=== PATIENT | female | born 1975 | race Caucasian/White ===

== ENCOUNTER → 2019-05-29 | Outpatient (CLI) | payer OTHER ==
[~2019-05-29] MED LIST: ACETAMINOPHEN-1 EAC1 PO; ALDACTONE25 MG; CEFDINIR300 MG; CHERATUSSIN DA480 ML; ENBREL 25 MG KI25 M1; HUMERA SQ; HUMIRA40 MG/0.8; HYDROXYCHLOROQ200 M1; KEFLEX500 MG PO; LIPITOR 10 MG10 M1 PO; METHOTREXATE 22.5 MG; MUCINEX600 MG; NAPROSYN500 MG; PREDNISONE 10 M10 MG
--- NOTE | 2019-05-30 08:44 | EXE ---
[place] [address] STRESS ECHOCARDIOGRAM Name: DAQUANTALIA Room: [facility]#: [id number] Admission: 05/29/19 Attend Phys: Physician not on s Discharge: Date of : 71 Date of Service: 05/30/19 0844 Report #: [id number] THIS REPORT FOR: //name// APPROVED REPORT Study performed: 05/29/2019 15:29:03 Exam: Dobutamine Stress Echo Indication: Dyspnea Patient Location: Out-Patient Stress Nurse: Sana Linton RN Supervising Physician: Helio Torres MD Ht: 5 ft 3 in HR: 88 bpm BP: 126/76 mmHg Medical History Cardiac Risk Factors: Hyperlipidemia, HTN, DM Procedure The patient underwent a Pharmacological Stress Test using Dobutamine. Blood pressure, heart rate, and EKG were monitored. An Echocardiogram was performed by distribution technician in four stages in quad fashion. At peak stress, four selected images were obtained and placed side by side with resting images for comparison. Echo Enhancing Agent Indication: Endocardial border delineation Agent(s) / Amount(s) Used: Optison 10 cc Stress Test Details Stress Test: Pharmacological Stress Test using Dobutamine. HR Resting HR: 88 bpm Max Heart Rate (APMHR): 174 bpm Max HR Achieved: 148 bpm Target HR (85% APMHR): 147 bpm % of APMHR: 85 Recovery HR: 103 bpm BP Resting BP: 126/76 mmHg Max BP: 150/71 mmHg Recovery BP: 149/81 mmHg ECG Resting ECG: [place] [address] STRESS ECHOCARDIOGRAM Name: TALIA BUTT Room: [facility]#: [id number] Admission: 05/29/19 Attend Phys: Physician not on s Discharge: Date of : 71 Date of Service: 05/30/19 0844 Report #: [id number] Stress ECG: Sinus Tachycardia ST Change: None Arrhythmia: None Recovery ECG: Sinus Rhythm Recovery ST Change: None Recovery Arrhythmia: None Clinical Angina Score: None The patient tolerated dobutamine infusion without significant cardiac symptoms. Stress ECG Conclusion The baseline 12-lead EKG shows sinus rhythm without significant ST or T wave abnormality. EKGs obtained during and post dobutamine infusion show sinus rhythm and sinus tachycardia with no significant ST or T wave changes when compared to baseline. There were no stress-induced arrhythmias. Pre-Stress Echo The resting Echocardiogram showed normal left ventricular contractility with an estimated Ejection Fraction of about 55-60%. Normal wall motion in all segments on baseline images. Post-Stress Echo The stress Echocardiogram showed normal left ventricular contractility with an estimated Ejection Fraction of about >70%. Normal augmentation of wall motion in all segments on post stress images. Clinical No clinical or ECG evidence for ischemia. Conclusion Clinical Response: Non-ischemic Stress ECG Response: Non-ischemic Stress Echo Images: Non-ischemic Other Information Study Quality: Fair Technically limited study due to body habitus. <ELECTRONICALLY SIGNED> By: Billy Kinney MD, FACC 05/30/1946 3 3 Billy Kinney MD, FACC /INF
== END | disposition home or self-care (01) ==
LOC: M.CRD 05-14 15:00
DX: R06.00 Dyspnea, unspecified (principal); I42.4 Endocardial fibroelastosis; I10 Essential (primary) hypertension; E11.9 Type 2 diabetes mellitus without complications; E78.5 Hyperlipidemia, unspecified; Z98.890 Other specified postprocedural states; Z79.899 Other long term (current) drug therapy

== ENCOUNTER 2019-08-31 11:36 | Emergency (ER) | payer OTHER ==
[~2019-08-31] VITALS: Ht 160 cm; Wt 152.9 kg
[2019-08-31] MEDS ORDERED: OXYBUTYNIN 5 MG5 M2 PO (11:53)
[2019-08-31] MEDS ORDERED: COZAAR 25 MG TA25 M1 PO (11:53)
[2019-08-31 12:22] LABS: ABSOLUTE BASOPHILS 0.1 thou/uL (0.0-0.2); ABSOLUTE EOSINOPHILS 0.2 thou/uL (0.0-0.7); ABSOLUTE LYMPHOCYTES 1.7 thou/uL (0.8-5.3); ABSOLUTE MONOCYTES 0.5 thou/uL (0.0-1.2); ABSOLUTE NEUTROPHILS 7.6 thou/uL (1.6-8.1); BASOPHILS 1.3 %; EOSINOPHILS 2.3 %; HEMATOCRIT 43.4 % (37.0-47.0); HEMOGLOBIN 14.7 gm/dL (12.0-15.0); MCH 32.4 pg (26.0-34.0); MCHC 33.7 g/dL (28.0-37.0); MPV 8.2 fl. (7.2-11.1); NUCLEATED RBCS 0 /100WBC; PLATELET COUNT* 253 thou/uL (150-400); POLYS 74.4 %; RBC 4.52 mil/uL (4.20-5.00); RDW-CV 17.5 % (10.5-14.5); WBC 10.2 thou/uL (4.0-11.0)
[2019-08-31 12:32] LABS: APTT 26.6 Seconds (25.0-31.3); PROTIME 10.7 Seconds (9.20-11.50)
[2019-08-31 12:39] LABS: CALCIUM 10.1 mg/dL (8.5-10.1); CREATININE 0.8 mg/dL (0.6-1.3); POTASSIUM 4.2 mmol/L (3.5-5.1)
[2019-08-31 12:42] LABS: NT-PRO BRAIN NAT PEPTIDE 28 pg/mL (<300)
[2019-08-31 12:44] LABS: ALBUMIN 3.4 g/dL (3.4-5.0); TOTAL BILIRUBIN 0.6 mg/dL (<0.1-1.0); TOTAL PROTEIN 7.2 g/dL (6.4-8.2)
[2019-08-31] MEDS ORDERED: MEDROLDOSEPACK PO (14:06)
[2019-08-31] MEDS ORDERED: VOLTAREN GEL 1100 G1 TOP (14:07)
[2019-08-31] MEDS ORDERED: NABUMETONE 750750 M1 PO (14:10)
[2019-08-31] MEDS ORDERED: FLEXERIL PO (14:10)
[2019-08-31 14:17] VITALS: BP 144/65
--- NOTE | 2019-09-01 12:18 | EKG ---
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1975 Requested By: Cherelle Tabor Order Number: [id number] MD: Alan Jaimes Measurements Intervals [place] Rate: 100 P: 35 TX: 136 QRS: -47 QRSD: 87 T: 51 QT: 338 QTc: 436 Interpretive Statements Sinus tachycardia LAD, consider left anterior fascicular block Low voltage, precordial leads Baseline wander in lead(s) II No previous ECG available for comparison Electronically Signed On 09-01-2019 12:17:19 [employer]NAGER [employer] by Alan Jaimes [email or web address] <ELECTRONICALLY SIGNED> By: Alan Jaimes MD, FAC 09/01/19 1217 1205 1205 Alan Jaimes MD, [facility] /EPI
== END 2019-08-31 14:18 | disposition home or self-care (01) ==
LOC: M.ERS 11:36
PROVIDERS: Nurse Practitioner Family
DX: M79.2 Neuralgia and neuritis, unspecified (principal); M79.661 Pain in right lower leg; E78.00 Pure hypercholesterolemia, unspecified; M06.9 Rheumatoid arthritis, unspecified